=== PATIENT | female | born 1985 | race Caucasian/White ===

== ENCOUNTER → 2016-05-26 | Outpatient (CLI) | payer BC ==
[~2016-05-26] MED LIST: ACIPHEX20 MG PO; ATIVAN 1MG T1 MG/TAB PO; AUGMENTIN 875 M1 TAB PO; B-12500 MCG PO; CLARITIN 1010 MG/TAB PO; FERROUS SULFATE65 MG PO; FLOMAX 0.40.4 MG/CAP PO; GEODON80 MG PO; IMITREX50 MG PO; LORTAB 5/500 501 TAB PO; MEDROL 4MG DOSPA4 MG PO; NORCO 325 MG-51 TAB PO; PROBIOTIC FORMU1 CAP PO; VITAMIN B121000 MCG PO; ZOFRAN 4MG T4 MG/TAB PO
== END ==
LOC: COL.PUL 08:00
DX: R05 Cough (principal)

== ENCOUNTER → 2019-01-13 | Outpatient (CLI) | payer BC | LOC: COL.LAB 09:42 | DX: Z01.89 Encounter for other specified special examinations (principal) ==